=== PATIENT | male | born 1990 | race Caucasian/White ===

== ENCOUNTER 2025-06-02 10:48 | Outpatient (CLI) | payer BC, SELFPAY ==
--- NOTE | 2025-06-02 06:00 | DI.RAD_ITS ---
Exam(s) XR PAIN CLINIC LUMBAR SP 2V EXAM: XR PAIN CLINIC LUMBAR SP 2V CLINICAL HISTORY: DX: Lumbar Spondylosis. TECHNIQUE: Fluoroscopy was provided for the referring physician for guidance with performing pain clinic injection procedure. COMPARISON: No exams were available for comparison FINDINGS: Please see procedure note for details. Fluoro time: 49.1 seconds RADIATION DOSE DELIVERED: stacy Rosario=10.69 mGy
[2025-06-02 11:00] VITALS: BP 109/67; PULSE 64; RESP 20; TEMP 37; O2SAT 96
--- NOTE | 2025-06-02 11:46 | PDOC.PAIN ---
Date of service: 06/02/25 Time of Service: 11:48 Pain Managment Procedure Note Procedure Note Procedure Note: Diagnostic Lumbar Facet Joint Injection ? Location: Bilateral Lumbar Facet Joints ? Levels: L2-3 ? Pre-procedure Diagnosis: M47.817 Spondylosis without myelopathy or radiculopathy, lumbosacral region M47.816 Spondylosis without myelopathy or radiculopathy, lumbar region ? Post-procedure Diagnosis:? The same as above ? Sedation:? None ? Estimated blood loss:? less than 2 cc ? Surgeon: Kyaw Khan MD COMMENT: Pain 7/10 .Decision was made to proceed with intra-articular facet injections for the possibility of not having to do medial branch blocks and radiofrequency ablation if patient get long lasting relief (> 3 months). Patient had traumatic compression fracture at L2 with wedging. ? Procedure Detail:? The procedure and potential risks were explained to the patient and informed written consent was obtained. The patient was escorted to the procedure room and placed in the prone position. Pillows were utilized for proper positioning and comfort.? Time out was performed in the procedure room with nursing staff confirming the patient's identity, procedure to be performed, allergies, and any blood thinning or anti-platelet medications.? Sterile technique was maintained throughout the procedure.? The patient's lumbosacral area was prepped with chlorhexidine and draped in a sterile fashion. Lidocaine 1% was used to anesthetize the skin. An oblique fluoroscopic view was obtained, with visualization of the facet joint.? A 22gauge, Quincke needle was gently advanced through the facet capsule.? Needle placement was confirmed with fluoroscopy in AP, oblique, and lateral views by injecting 0.25cc of contrast.? 20 mg of Depomedrol and 0.5ml of 0.5% bupivacaine was injected into the capsule at L2-3 Bilateral.? The patient tolerated the procedure well and was discharged home with instructions. Permanent images saved and recorded. Plan:? Follow up prn COMMENT:Pain went from 7/10 to 0/10. Pain? 100 % better. Will use this as both diagnostic and potentially therapeutic.? With short-term relief from the level that it was not long-lasting then we will proceed with for LMBB #2 and possible radiofrequency ablation. Would also consider basivertebral nerve ablation at L2 and L3 if pain persists Coding Conscious Sedation used for procedure: No CPT Codes: LMBB (includes Fluoro) Lumbar/Sacral, single lvl *BILATERAL* - [id number] ([id number]) Additional Codes: Date of Service (27341) Date of service: 06/02/25 Diagnoses: M47.817 Spondylosis without myelopathy or radiculopathy, lumbosacral region M47.816 Spondylosis without myelopathy or radiculopathy, lumbar region
[2025-06-02 11:47] VITALS: PULSE 61; O2SAT 98
[2025-06-02] MEDS: Bupivacaine 0.5% Pres-Free 10 ML VIAL IJ (11:49)
[2025-06-02] MEDS: methylPREDNISolone ACETATE 80 MG/ML VIAL IJ (11:50)
[2025-06-02] MEDS: Nerve Block Tray 1 EACH MC (11:50)
[2025-06-02] MEDS: Omnipaque 240 MG/ML 50 ML BTL IJ (11:50)
== END 2025-06-02 10:49 | disposition home or self-care (01) ==
LOC: PC 10:49
PROVIDERS: PCP Family Medicine; Visit Provider Anesthesiology Pain Medicine
DX: M54.50 Low back pain, unspecified (principal); M47.816 Spondylosis without myelopathy or radiculopathy, lumbar region; M47.817 Spondylosis without myelopathy or radiculopathy, lumbosacral region
CPT/HCPCS: 64493; 72100; J0665; J1010; Q9967